=== PATIENT | male | born 1975 | race Caucasian/White ===

== ENCOUNTER 2016-11-03 20:24 | Emergency (ER) | payer BC ==
[~2016-11-03 20:24] MED LIST: ATIVAN PO; LIPITOR20 MG PO; LOPRESSOR PO; LORAZEPAM1 MG PO; LOVASTATIN20 MG PO; OMNICEF PO; PROZAC; TOPROL XL50 MG PO
== END 2016-11-03 21:45 | disposition home or self-care (01) ==
LOC: SED 20:24
DX: R04.0 Epistaxis (principal); K21.9 Gastro-esophageal reflux disease without esophagitis; F41.9 Anxiety disorder, unspecified; I10 Essential (primary) hypertension; Z79.899 Other long term (current) drug therapy
CPT/HCPCS: 99283